=== PATIENT | female | born 1960 | race Caucasian/White ===

== ENCOUNTER 2024-12-31 05:23 | Day surgery (SDC) | payer BC ==
[~2024-12-31] VITALS: Ht 162.6 cm; Wt 68.6 kg
[2024-12-31] VITALS (7 sets, daily range): BP systolic 117–132; BP diastolic 72–78; PULSE 88–93
[~2024-12-31 05:23] MED LIST: AMLO5TAB66 PO; FLUT1BLS15 IH; LORA10TA7 PO; MEPO100A INJ; MONT-40 PO; OMEP40CA21 PO; SACU1TAB7 PO
[2024-12-31] MEDS ORDERED: SODIUM CHLORIDE 0.9% 1,000 ML ONE (06:07)
[2024-12-31 06:14] LABS: PLATELET COUNT (AUTO) 300 K/uL (150-450); RED BLOOD CELL COUNT(AUTO) 5.10 MIL/uL (4.00-5.20); RED CELL DISTRIBUTION WIDTH 14.4 % (11.5-14.5); WHITE BLOOD COUNT (AUTO) 9.1 K/uL (4.5-11.0)
[2024-12-31] MEDS: SODIUM CHLORIDE 0.9% 1,000 ML IV ONE (06:25)
[2024-12-31 06:27] LABS: CALCIUM, TOTAL 8.6 mg/dL (8.8-10.5); CREATININE 0.97 mg/dL (0.60-1.30); GLOMERULAR FILTR. RATE CALC 58.0 mL/min (>60); GLUCOSE,RANDOM 118.0 mg/dL (70-110); SODIUM SERUM 143.0 mmol/L (136-145); UREA NITROGEN, BLOOD 13.0 mg/dL (7-18)
[2024-12-31 06:31] LABS: ASPARTATE AMINOTRANSFERASE 17.0 U/L (15-37); TOTAL PROTEIN, SERUM 6.8 g/dL (6.4-8.2)
[2024-12-31] MEDS ORDERED: LIDOCAINE 2% VISCOUS 15 ML SOLUTION UDCUP ONE (07:09)
[2024-12-31] MEDS ORDERED: FentaNYL CITRATE PF 100 MCG/2 ML VIAL ONE (07:35)
[2024-12-31] MEDS ORDERED: MIDAZOLAM HCL 2 MG/2 ML VIAL ONE (07:35)
[2024-12-31] MEDS: MIDAZOLAM HCL 2 MG/2 ML VIAL IVP ONE ×2 (08:01→08:02)
[2024-12-31] MEDS: FentaNYL CITRATE PF 100 MCG/2 ML VIAL IVP ONE (08:02)
[2024-12-31] MEDS: LIDOCAINE 2% VISCOUS 15 ML SOLUTION UDCUP PO ONE (08:09)
== END 2024-12-31 10:50 | disposition home or self-care (01) ==
LOC: CATHLAB 05:23
PROVIDERS: ATTEND Internal Medicine
DX: Q21.10 Atrial septal defect, unspecified (principal); I27.20 Pulmonary hypertension, unspecified; Z88.1 Allergy status to other antibiotic agents; Z87.01 Personal history of pneumonia (recurrent); Z72.89 Other problems related to lifestyle; Z79.01 Long term (current) use of anticoagulants; Z79.899 Other long term (current) drug therapy
CPT/HCPCS: 93312; 80053; 85025; 85610; 85730; 36415; 93005; 93325; 99152; J3010; J2250; J7030